=== PATIENT | female | born 1990 | race African-American/Black ===

== ENCOUNTER 2017-05-16 00:59 | Emergency (ER) | payer MEDICAID ==
[~2017-05-16] VITALS: Ht 167.6 cm; Wt 40.0 kg
[2017-05-16] MEDS ORDERED: SODIUM CHLORIDE 0.9% 1,000 ML IV ONE (02:01)
[2017-05-16] MEDS ORDERED: ONDANSETRON HCL 4MG/2ML VIAL IV STA (02:01)
[2017-05-16] MEDS ORDERED: MORPHINE SULFATE 10 MG/ML CPJ IV ONE (02:15)
[2017-05-16 02:37] LABS: HEMATOCRIT. 28.1 % (36.0-48.0); HEMOGLOBIN. 9.6 g/dL (12.0-16.0); MEAN CORPUSCULAR HEMOGLOBIN 30.9 pg (28.0-32.0); MEAN CORPUSCULAR VOLUME 90.8 fL (81.0-99.0); MEAN PLATELET VOLUME 7.9 fl (7.4-10.4); PLATELET 271 x1000/uL (130-400); RED CELL DISTRIBUTION WIDTH 13.6 % (11.6-14.6)
[2017-05-16 02:38] LABS: PROTHROMBIN TIME 10.2 sec (9.4-11.6)
[2017-05-16 02:47] LABS: CARBON DIOXIDE 23 mEq/L (21-32); CHLORIDE 105 mEq/L (98-107); TROPONIN I < 0.02 ng/mL (0.00-0.04)
[2017-05-16] MEDS ORDERED: ACETAMINOPHEN 325MG TABLET PO ONE (04:00)
[2017-05-16] MEDS ORDERED: MAGNESIUM/ALUMINUM HYDROXIDE/SIMETHICONE 30ML UDC PO ONE (04:00)
[2017-05-16] MEDS ORDERED: FAMOTIDINE 20MG/2ML VIAL IV ONE (04:00)
[2017-05-16 04:12] LABS: B-HCG QUANTITATIVE 76144 mIU/mL (<3)
[2017-05-16 05:04] LABS: ATYPICAL LYMPHOCYTES 1
[2017-05-16 05:05] LABS: PLATELET ESTIMATE NORMAL
[2017-05-16 05:24] VITALS: BP 90/57
== END 2017-05-16 05:34 | disposition home or self-care (01) ==
LOC: ER 01:09
DX: O26.891 Other specified pregnancy related conditions, first trimester (principal); K29.70 Gastritis, unspecified, without bleeding; Z3A.12 12 weeks gestation of pregnancy; Z98.890 Other specified postprocedural states
CPT/HCPCS: 36415; 71010; 76801; 80053; 83690; 83880; 84484; 84702; 85025; 85610; 86850; 86900; 86901; 93005; 96361; 96374; 96375; 99285; J2270; J2405; J3490; J7030; Z7610